=== PATIENT | female | born 1975 | race Two or more races ===

== ENCOUNTER 2022-07-01 03:09 | Emergency (ER) | payer OTHER ==
[~2022-07-01] VITALS: Ht 149.9 cm; Wt 84.5 kg
[2022-07-01 03:45] VITALS: BP 121/67
== END 2022-07-01 03:53 | disposition home or self-care (01) ==
LOC: EMS 03:12
DX: F41.0 Panic disorder [episodic paroxysmal anxiety] (principal); E11.9 Type 2 diabetes mellitus without complications; I10 Essential (primary) hypertension; Z98.890 Other specified postprocedural states
CPT/HCPCS: 82962; 93005; 99283

== ENCOUNTER 2024-12-06 16:56 | Inpatient (IN) | payer OTHER, BC ==
[~2024-12-06] VITALS: Ht 149.9 cm; Wt 90.0 kg
[~2024-12-06 16:56] MED LIST: CIPR7.5D7 AD; FELO5TAB48 PO; IRBE150T34 PO; PRAV10TA37 PO
[2024-12-06 17:41] LABS: GLUCOMETER DEV NAME(LOC) ER.7; GLUCOSE,POINT OF CARE 145 MG/DL (70-110)
[2024-12-06 17:52] LABS: PLATELET COUNT (AUTO) 318 K/uL (150-450); RED BLOOD CELL COUNT(AUTO) 4.84 MIL/uL (4.00-5.20); RED CELL DISTRIBUTION WIDTH 14.5 % (11.5-14.5); WHITE BLOOD COUNT (AUTO) 8.6 K/uL (4.5-11.0)
[2024-12-06 18:36] LABS: CALCIUM, TOTAL 10.1 mg/dL (8.8-10.5); CREATININE 0.84 mg/dL (0.60-1.30); GLOMERULAR FILTR. RATE CALC > 60 mL/min (>60); GLUCOSE,RANDOM 169 mg/dL (70-110); SODIUM SERUM 137 mmol/L (136-145); UREA NITROGEN, BLOOD 15 mg/dL (7-18)
[2024-12-06 18:44] LABS: TROPONIN I-HIGH SENSITIVITY Less Than 4 ng/L (<51)
[2024-12-06 19:05] LABS: APPEARANCE,URINE HAZY (CLEAR); GLUCOSE, URINE (UA) NEGATIVE (NEGATIVE); LEUKOCYTE ESTERASE ,URINE NEGATIVE (NEGATIVE); NITRATE,URINE NEGATIVE (NEGATIVE); OCCULT BLOOD,URINE SMALL (NEGATIVE); SPECIFIC GRAVITIY, URINE 1.028 (1.003-1.030)
[2024-12-06 19:19] LABS: SQUAMOUS EPITHELIAL CELL,UR Few /LPF (None Seen)
[2024-12-06] MEDS ORDERED: MORPHINE SULFATE 4 MG/ML SYRINGE IVP ONE (19:30)
[2024-12-06 20:19] LABS: ASPARTATE AMINOTRANSFERASE 431.0 U/L (15-37); TOTAL PROTEIN, SERUM 8.8 g/dL (6.4-8.2)
[2024-12-06] MEDS: ONDANSETRON HCL 4 MG/2 ML VIAL IVP ONE ×2 (20:25→21:49)
[2024-12-06] MEDS: SODIUM CHLORIDE 0.9% 1,000 ML IV ONE (20:28)
[2024-12-06] MEDS: IOHEXOL 9 MG/ML 500 ML BOTTLE PO ONE (20:28)
[2024-12-06] MEDS: PIPERACILLIN/TAZO 3.375 GM/D5W 50 ML IV ONE (23:04)
[2024-12-06] MEDS ORDERED: ONDANSETRON HCL 4 MG/2 ML VIAL IVP PRN (23:15)
[2024-12-06] MEDS: METOCLOPRAMIDE HCL 5 MG/ML 2 ML VIAL IVP ONE (23:15)
[2024-12-06] MEDS: DEXTROSE 5%-LACTATED RINGERS 1,000 ML IV SCH (23:58)
[2024-12-07 06:24] VITALS: BP 117/60; PULSE 82; RESP 18; TEMP 98.8; O2SAT 97
[2024-12-07] MEDS: DOCUSATE SODIUM 100 MG CAPSULE PO SCH (08:21)
[2024-12-07 12:18] VITALS: BP 112/60; PULSE 87; RESP 19; TEMP 98.9; O2SAT 97
[2024-12-07 12:37] LABS: CALCIUM, TOTAL 9.2 mg/dL (8.8-10.5); CREATININE 0.79 mg/dL (0.60-1.30); GLOMERULAR FILTR. RATE CALC > 60 mL/min (>60); GLUCOSE,RANDOM 130 mg/dL (70-110); SODIUM SERUM 138 mmol/L (136-145); UREA NITROGEN, BLOOD 9 mg/dL (7-18)
[2024-12-07 12:41] LABS: PLATELET COUNT (AUTO) 279 K/uL (150-450); RED BLOOD CELL COUNT(AUTO) 4.27 MIL/uL (4.00-5.20); RED CELL DISTRIBUTION WIDTH 14.7 % (11.5-14.5); WHITE BLOOD COUNT (AUTO) 7.7 K/uL (4.5-11.0)
[2024-12-07] MEDS ORDERED: POTASSIUM CHL 10 MEQ/WATER 50 ML IV PRN (13:45)
[2024-12-07] MEDS: POTASSIUM CHLORIDE 20 MEQ ER TABLET PO PRN (13:57)
[2024-12-07 15:44] VITALS: BP 113/76; PULSE 76; RESP 18; TEMP 98.4; O2SAT 98
[2024-12-07] MEDS: PANTOPRAZOLE SODIUM 40 MG DR TABLET PO SCH (22:02)
[2024-12-07] MEDS: HEPARIN SODIUM,PORCINE 5,000 UNITS/ML VIAL SQ SCH (23:10)
[2024-12-07 23:15] VITALS: BP 133/78; PULSE 71; RESP 20; TEMP 101.1; O2SAT 98
[2024-12-07 23:35] VITALS: TEMP 98.6
[2024-12-07] MEDS: MORPHINE SULFATE 2 MG/ML SYRINGE IVP PRN (23:55)
[2024-12-08 05:19] VITALS: BP 115/65; PULSE 71; RESP 18; TEMP 98.2; O2SAT 98
[2024-12-08 08:04] VITALS: TEMP 98.2
[2024-12-08 08:09] VITALS: BP 119/68; PULSE 60; RESP 18; O2SAT 98
[2024-12-08] MEDS ORDERED: PANTOPRAZOLE SODIUM 40 MG DR TABLET PO SCH (09:00)
[2024-12-08 09:21] LABS: ASPARTATE AMINOTRANSFERASE 283.0 U/L (15-37); TOTAL PROTEIN, SERUM 7.4 g/dL (6.4-8.2)
[2024-12-08] MEDS ORDERED: RINGERS SOLUTION,LACTATED 1,000 ML IV SCH (15:45)
[2024-12-08] MEDS ORDERED: GADOTERATE MEGLUMINE 10 MMOL/20 ML VIAL IVP ONE (15:45)
[2024-12-08] MEDS: DEXTROSE 5%-LACTATED RINGERS 1,000 ML IV SCH (16:00)
[2024-12-08 16:30] VITALS: BP 140/89; PULSE 72; RESP 18; TEMP 98.6; O2SAT 99
[2024-12-08] MEDS: PIPERACILLIN/TAZO 3.375 GM/D5W 50 ML IV SCH (17:27)
[2024-12-08] MEDS: RINGERS SOLUTION,LACTATED 1,000 ML IV SCH (17:29)
[2024-12-08 19:53] VITALS: BP 118/66; PULSE 61; RESP 18; TEMP 98.1; O2SAT 100
[2024-12-09 05:42] VITALS: BP 134/67; PULSE 56; RESP 18; TEMP 97.9; O2SAT 97
[2024-12-09 07:09] LABS: CALCIUM, TOTAL 8.8 mg/dL (8.8-10.5); CREATININE 0.66 mg/dL (0.60-1.30); GLOMERULAR FILTR. RATE CALC > 60 mL/min (>60); GLUCOSE,RANDOM 84 mg/dL (70-110); SODIUM SERUM 142 mmol/L (136-145); UREA NITROGEN, BLOOD 6 mg/dL (7-18)
[2024-12-09 07:13] LABS: PLATELET COUNT (AUTO) 255 K/uL (150-450); RED BLOOD CELL COUNT(AUTO) 4.36 MIL/uL (4.00-5.20); RED CELL DISTRIBUTION WIDTH 15.0 % (11.5-14.5); WHITE BLOOD COUNT (AUTO) 5.9 K/uL (4.5-11.0)
[2024-12-09 07:16] LABS: ASPARTATE AMINOTRANSFERASE 136 U/L (15-37); TOTAL PROTEIN, SERUM 7.5 g/dL (6.4-8.2)
[2024-12-09 08:21] VITALS: BP 135/65; PULSE 53; RESP 18; TEMP 98.1; O2SAT 97
[2024-12-09] MEDS ORDERED: PROPOFOL 1% 20 ML VIAL IVP ONE (08:42)
[2024-12-09] MEDS ORDERED: ROCURONIUM BROMIDE 10 MG/ML 5 ML VIAL IV ONE (08:42)
[2024-12-09] MEDS ORDERED: ONDANSETRON HCL 4 MG/2 ML VIAL IVP ONE (08:42)
[2024-12-09] MEDS ORDERED: SUGAMMADEX SODIUM 200 MG/2 ML VIAL IVP ONE (08:42)
[2024-12-09] MEDS ORDERED: DEXAMETHASONE SOD PHOS 4 MG/ML VIAL IVP ONE (08:42)
[2024-12-09] MEDS ORDERED: LIDOCAINE/PF 2% 5 ML VIAL IM ONE (08:42)
[2024-12-09] MEDS ORDERED: FentaNYL CITRATE PF 100 MCG/2 ML VIAL IM ONE (08:53)
[2024-12-09] MEDS ORDERED: MIDAZOLAM HCL 2 MG/2 ML VIAL IVP ONE (08:53)
[2024-12-09] MEDS ORDERED: IOTHALAMATE MEGLUMINE 600 MG/ML 50 ML VIAL IVP ONE (10:01)
[2024-12-09] MEDS ORDERED: FentaNYL CITRATE PF 100 MCG/2 ML VIAL IVP PRN (11:15)
[2024-12-09] MEDS ORDERED: MEPERIDINE-PF 25 MG/ML VIAL IVP PRN (11:15)
[2024-12-09] MEDS ORDERED: SODIUM CHLORIDE 0.9% 1,000 ML ONE (11:50)
[2024-12-09] MEDS: SODIUM CHLORIDE 0.9% 1,000 ML IV ONE (12:41)
[2024-12-09 16:06] VITALS: BP 145/97; PULSE 81; RESP 18; TEMP 98; O2SAT 95
[2024-12-09] MEDS: OXYGEN THERAPY IH SCH (20:00)
[2024-12-09 20:33] VITALS: BP 139/75; PULSE 53; RESP 18; TEMP 98.1; O2SAT 97
[2024-12-10 05:06] VITALS: BP 123/75; PULSE 54; RESP 18; TEMP 97.3; O2SAT 97
[2024-12-10 08:08] VITALS: BP 112/73; PULSE 50; RESP 18; TEMP 97.5; O2SAT 97
[2024-12-10] MEDS ORDERED: SODIUM CHLORIDE 0.9% 250 ML IV ONE (11:39)
[2024-12-10 15:58] VITALS: BP 116/59; PULSE 66; RESP 18; TEMP 98.2; O2SAT 98
[2024-12-10 19:40] VITALS: BP 116/74; PULSE 56; RESP 18; TEMP 97.9; O2SAT 99
[2024-12-11 04:27] VITALS: BP 109/68; PULSE 59; RESP 18; TEMP 97.4; O2SAT 96
[2024-12-11 07:11] LABS: ASPARTATE AMINOTRANSFERASE 54 U/L (15-37); CALCIUM, TOTAL 8.4 mg/dL (8.8-10.5); CREATININE 0.74 mg/dL (0.60-1.30); GLOMERULAR FILTR. RATE CALC > 60 mL/min (>60); GLUCOSE,RANDOM 167 mg/dL (70-110); SODIUM SERUM 142 mmol/L (136-145); TOTAL PROTEIN, SERUM 7.4 g/dL (6.4-8.2); UREA NITROGEN, BLOOD 10 mg/dL (7-18)
[2024-12-11 08:43] VITALS: BP 136/77; PULSE 55; RESP 18; TEMP 98; O2SAT 100
[2024-12-11] MEDS ORDERED: AMOX-457 PO (08:56)
[2024-12-11] MEDS ORDERED: PANT-31 PO (10:43)
== END 2024-12-11 14:25 | disposition home or self-care (01) | DRG 445 ==
LOC: EMS 16:56 → EDH 12-07 01:52 → 5S 12-07 06:11 → 4E 12-07 22:39
PROVIDERS: ADMIT Internal Medicine; ATTEND Internal Medicine
PROC: BF101ZZ Fluoroscopy of Bile Ducts using Low Osmolar Contrast (ICD-10-PCS; 2024-12-09)
PROC: 0W3P8ZZ Control Bleeding in Gastrointestinal Tract, Via Natural or Artificial Opening Endoscopic (ICD-10-PCS; 2024-12-09)
PROC: 0FC98ZZ Extirpation of Matter from Common Bile Duct, Via Natural or Artificial Opening Endoscopic (ICD-10-PCS; principal; 2024-12-09 13:30)
DX: K80.30 Calculus of bile duct with cholangitis, unspecified, without obstruction (principal); K57.92 Diverticulitis of intestine, part unspecified, without perforation or abscess without bleeding; Z68.41 Body mass index [BMI] 40.0-44.9, adult; K75.9 Inflammatory liver disease, unspecified; I10 Essential (primary) hypertension; E66.01 Morbid (severe) obesity due to excess calories; Z91.199 Patient's noncompliance with other medical treatment and regimen due to unspecified reason; Z88.1 Allergy status to other antibiotic agents; Z91.013 Allergy to seafood; Z79.899 Other long term (current) drug therapy; Z88.3 Allergy status to other anti-infective agents; Z90.49 Acquired absence of other specified parts of digestive tract; Z91.041 Radiographic dye allergy status
CPT/HCPCS: 71045; 74177; 74183; 76705; 80048; 80053; 80076; 81001; 82962; 83690; 83735; 84132; 84484; 84703; 85025; 85610; 85730; 87040; 87081; 93005; 96361; 96365; 96375; 99285; G0378; J1100; J1171; J1200; J1644; J2250; J2270; J2405; J2543; J2704; J2765; J3010; J3490; J7030; J7050; J7120; Q9961; 36415-L1; 36415-TC; Z7610